=== PATIENT | female | born 1940 | race Native Hawaiian/Other Pacific Islander ===

== ENCOUNTER 2019-03-18 19:22 | Emergency (ER) | payer OTHER ==
[~2019-03-18] VITALS: Ht 160 cm; Wt 47.6 kg
[2019-03-18 19:50] LABS: PLATELET COUNT 388 K/uL (152-353)
[2019-03-18 20:04] LABS: POTASSIUM 4.4 mmol/L (3.6-5.2)
[2019-03-18 20:42] VITALS: BP 133/69; TEMP 98.2
[2019-03-18] MEDS ORDERED: SILODOSIN4 MG PO (22:26)
[2019-03-18] MEDS ORDERED: THIA100T8 PO (22:28)
[2019-03-18] MEDS ORDERED: DIVALPROEX125 MG PO (22:30)
[2019-03-18] MEDS ORDERED: DOK100 MG PO (22:31)
[2019-03-18] MEDS ORDERED: LORA0.5T17 PO ×3 (22:32→23:05)
[2019-03-18] MEDS ORDERED: HM MAGNESIUM400 MG PO (22:33)
[2019-03-18] MEDS ORDERED: MEMA5TAB PO (22:34)
[2019-03-18] MEDS ORDERED: BOOST PO (22:36)
[2019-03-18] MEDS ORDERED: IPRAAER INH (22:39)
[2019-03-18] MEDS ORDERED: ANTI DIARRHEAL PO (22:41)
[2019-03-18] MEDS ORDERED: BREO ELLIPTA INH (22:45)
[2019-03-18] MEDS ORDERED: DAILY VITAMIN PO (22:46)
[2019-03-18] MEDS ORDERED: MELOXICAM7.5 MG PO (22:49)
[2019-03-18] MEDS ORDERED: POTASSIUM CL ER PO (22:51)
[2019-03-18] MEDS ORDERED: EXCELON (22:56)
[2019-03-18] MEDS ORDERED: ZOFRAN8 MG PO (22:58)
[2019-03-18] MEDS ORDERED: HYDROXYZINE HYD25 MG PO (23:00)
[2019-03-18] MEDS ORDERED: TRAMADOL HYDROC50 MG PO (23:01)
[2019-03-18] MEDS ORDERED: BIDEX PO (23:02)
== END 2019-03-18 20:42 | disposition other institution (70) ==
LOC: ED 19:22
PROVIDERS: Emergency Medicine
DX: F03.91 Unspecified dementia, unspecified severity, with behavioral disturbance (principal); J44.9 Chronic obstructive pulmonary disease, unspecified; Z04.6 Encounter for general psychiatric examination, requested by authority
CPT/HCPCS: 36415; 80053; 81000; 85027; 93005; 94664; 99283; 99285